=== PATIENT | male | born 1995 | race Hispanic/Latino ===

== ENCOUNTER 2016-07-04 02:54 | Emergency (ER) | payer SELFPAY ==
[~2016-07-04] VITALS: Ht 172.7 cm; Wt 93.9 kg
[2016-07-04 02:57] VITALS: BP 126/87
[2016-07-04] MEDS ORDERED: BACTRIM,SEPT1 TABLET PO (03:42)
[2016-07-04] MEDS ORDERED: KEFLEX500 MG PO (03:42)
== END 2016-07-04 04:10 | disposition home or self-care (01) ==
LOC: EME 02:54
DX: L03.311 Cellulitis of abdominal wall (principal); F17.200 Nicotine dependence, unspecified, uncomplicated
CPT/HCPCS: 99281; 99284